=== PATIENT | male | born 1990 | race Hispanic/Latino ===

== ENCOUNTER 2023-04-07 12:09 | Emergency (ER) | payer BC ==
[~2023-04-07] VITALS: Ht 165.1 cm; Wt 130.2 kg
[~2023-04-07 12:09] MED LIST: AMOX1TAB16 PO; OSEL75 PO
[2023-04-07 12:27] VITALS: BP 151/92; PULSE 77; RESP 16; O2SAT 100
[2023-04-07] MEDS ORDERED: LIDOCAINE 1%-EPI 1:100,000 20 ML VIAL ONE (12:36)
[2023-04-07] MEDS ORDERED: AMOX1TAB16 PO (14:20)
== END 2023-04-07 14:32 | disposition home or self-care (01) ==
LOC: EDH 12:09
DX: T81.30XA Disruption of wound, unspecified, initial encounter (principal); Z88.1 Allergy status to other antibiotic agents
CPT/HCPCS: 99283; 12002; J3490